=== PATIENT | male | born 1965 | race Two or more races ===

== ENCOUNTER 2023-05-04 17:58 | Emergency (ER) | payer OTHER ==
[~2023-05-04] VITALS: Ht 160 cm; Wt 84.1 kg
[2023-05-04 18:01] VITALS: BP 161/101; PULSE 67; RESP 18; TEMP 98.6
[2023-05-04] MEDS ORDERED: ARIP15TA27 PO (18:06)
[2023-05-04] MEDS ORDERED: LURA40TA2 PO (18:06)
[2023-05-04] MEDS ORDERED: LURA20TA PO (18:06)
[2023-05-04] MEDS ORDERED: ISOS30TA92 PO (18:07)
[2023-05-04] MEDS ORDERED: BACL10TA PO (18:07)
[2023-05-04] MEDS ORDERED: OMEP20 PO (18:07)
[2023-05-04] MEDS ORDERED: BISOPROLOL PO (18:07)
[2023-05-04] MEDS ORDERED: VALB40CA2 PO (18:07)
[2023-05-04] MEDS ORDERED: ESCI20TA87 PO (18:07)
[2023-05-04] MEDS ORDERED: ASPI-1444 PO (18:07)
[2023-05-04] MEDS ORDERED: NIFE-40 PO (18:07)
== END 2023-05-04 19:30 | disposition left against medical advice (07) ==
LOC: EMS 18:00
DX: F41.9 Anxiety disorder, unspecified (principal); R45.851 Suicidal ideations; Z53.21 Procedure and treatment not carried out due to patient leaving prior to being seen by health care provider
CPT/HCPCS: 99281; Z7502